=== PATIENT | male | born 2000 | race African-American/Black ===

== ENCOUNTER 2023-08-30 22:10 | Observation (INO) ==
[2023-08-30 22:38] LABS: Basophils # (auto) 0.05 K/uL (0.00-0.20); Basophils % (auto) 0.4 %; Eosinophils # (auto) 0.33 K/uL (0.00-0.50); Eosinophils % (auto) 2.8 %; Hematocrit (blood only) 29.9 % (42.0-52.0); Hemoglobin 10.6 g/dl (14.0-18.0); Immature Granulocytes # (auto) 0.11 K/uL (0.01-0.20); Immature Granulocytes % (auto) 0.9 %; Lymphocytes # (auto) 3.25 K/uL (1.20-3.40); Lymphocytes % (auto) 27.3 %; Mean Corpuscular Hemoglobin 27.1 pg (25.0-34.0); Mean Corpuscular Hgb Conc 35.5 g/dL (32.0-36.0); Mean Corpuscular Volume 76.5 fL (80.0-100.0); Mean Platelet Volume 10.1 fL (9.4-12.4); Monocytes # (auto) 1.21 K/uL (0.11-0.59); Monocytes % (auto) 10.2 %; Neutrophils # (auto) 6.97 K/uL (1.40-6.50); Neutrophils % (auto) 58.4 %; Platelet Count 245 K/uL (130-400); RDW Coefficient of Variation 15.1 % (11.5-14.5); RDW Standard Deviation 39.8 fL (36.4-46.3); Red Blood Count 3.91 M/uL (4.70-6.10); White Blood Count 11.92 K/ul (4.8-10.8)
[2023-08-30 22:47] LABS: Appearance Urine Clear (Clear); Bilirubin Urine Negative (Negative); Blood Urine Negative (Negative); Color Urine Yellow; Glucose Urine UA Negative (Negative); Ketones Urine Negative (Negative); Leukocyte Esterase Urine Negative (Negative); Nitrite Urine Negative (Negative); Protein Urine 1+ (Negative); Urobilinogen Urine Positive (Negative)
[2023-08-30 22:53] LABS: Albumin Globulin Ratio 1.4 (0.9-2); Albumin Level 3.8 gm/dl (3.4-5.0); BUN Creatinine Ratio 11.1 (10-20); Bilirubin,Total 2.9 mg/dl (0.2-1.0); Creatinine Clr Calc Pharmacy 160.6 ml/min; Est GFR (Non-African American) 122.5 ml/min; Globulin 2.7 gm/dl (2.5-4.0); Potassium 3.5 mmol/L (3.5-5.1); Total Protein 6.5 gm/dl (6.0-8.3)
[2023-08-30 22:55] LABS: Amorphous Sediment Urine Present (None Prsent); Epithelial Cell Urine 0-5 /lpf (0-5)
[2023-08-30 22:56] LABS: Bacteria Urine Negative (Negative); RBC Urine 0-4 /hpf (0-4); WBC Urine 0-5 /hpf (0-5)
[2023-08-31] MEDS ORDERED: OPTIRAY 320 500ml IV ONE (00:31)
[2023-08-31] MEDS: SODIUM CHLORIDE 0.9% 1,000 ML IV SCH ×5 (00:36→13:11)
--- NOTE | 2023-08-31 00:36 | Emergency Department Note ---
Impression & Plan Rhabdomyolysis, Anemia, Abdominal pain ED Provider Note CHIEF COMPLAINT: Abdominal pain, copper colored urine HISTORY OF PRESENT ILLNESS: This 22-year-old man patient presents to the emergency department via private vehicle for evaluation of abdominal pain and copper colored urine for the past 4 to 5 days. The patient states that about 6 or 7 days ago, he was doing the "boxers method" to tone his abs. He states that he and friends did wraps of dropping a medicine ball onto the abdomen for approximately 45 minutes. He states within 1 to 2 days, he developed some upper abdominal pain, tenderness, distention, and firmness. He states that around the same time, he noticed that his urine was a copper color. He states he has tried to increase his fluid intake and has not noticed any significant change in the color of the urine. The patient states that the pain feels more like a soreness in the upper abdomen. He denies any other trauma or injury. He denies any recent fever or illness. No diarrhea or constipation. No change in the color of the stool. No chest pain or shortness of breath. No other associated symptoms. No history of similar symptoms. REVIEW OF SYSTEMS: A 10 system review of systems was performed with positives and pertinent negatives listed in the history of present illness. All other systems were reviewed and are negative. ALLERGIES: NKDA PHYSICAL EXAM: VITALS: Vitals are noted on the nurse's note and reviewed by myself. Vital signs stable. GENERAL: This is a 22-year-old male, in no acute distress, nondiaphoretic, well- developed well-nourished. SKIN: The skin was without rashes, erythema, edema, or bruising. There is no tenting of the skin. Capillary refill less than 2 seconds. HEAD: Normocephalic atraumatic. EYES: Conjunctivae without injection, sclerae without icterus. MOUTH: Mucous membranes moist. Tonsils are not enlarged. Pharynx without erythema or exudate. Uvula midline. Airway patent. Tongue does not deviate. NECK: Supple without nuchal rigidity. No lymphadenopathy. Cervical spine is nontender. No JVD. HEART: Regular rate and rhythm without murmurs gallops or rubs. LUNGS: Clear to auscultation bilaterally without wheezes, rales or rhonchi. No retractions or accessory muscle use. ABDOMEN: Positive bowel sounds x 4. Firm, tender area of the epigastrium. No skin discoloration. No fluctuance. Parker sign negative. No guarding or rebound tenderness. MUSCULOSKELETAL: No muscle atrophy, erythema, or edema noted. Full range of motion without joint tenderness in all extremities. No tenderness to palpation. Normal gait. Strength 5/5 throughout. NEURO: Patient was alert and oriented to person place and time. No focal neurological deficits. Imaging as interpreted by myself and the radiologist revealed no acute findings, with radiologist interpretation as above. I agree with the radiologist's findings as based upon my independent interpretation. EMERGENCY DEPARTMENT COURSE: The patient was seen and evaluated as above. Patient presents for upper abdominal pain and urine discoloration after an episode of repeated trauma to the abdomen where a medicine ball was dropped onto his abdomen over several sets for about 45 minutes IV access was obtained, labs were drawn. There is a mild leukocytosis of 11.92. Anemia with a hemoglobin of 10.6. No thrombocytopenia. Renal function without significant abnormality. Bilirubin elevated 2.9. AST and ALT mildly elevated at 70 and 54. Total CK 1121 lipase 16 urinalysis positive for urobilinogen and 1+ protein. No evidence of bacteria or clear evidence of infection Patient was hydrated with 2 L of IV fluids. Patient was reassessed. He is feeling somewhat better at this time. I am concerned for rhabdomyolysis. The patient will be admitted to the hospitalist service. He will have IV hydration. Please see hospitalist dictation regarding ongoing management and care of this patient I did discuss the case with Dr. Rivera, [facility] hospitalist physician Case was discussed with the attending physician. This visit is during a period of high volume and high acuity in the emergency department. I attest that I have personally reviewed the patient medication list. I attest that I have reviewed the patient's blood pressure and it was found to be normotensive In the evaluation and treatment of this patient the following differential diagnoses were entertained: appendicitis, diverticulitis, obstruction, inflammatory bowel disease, renal colic, PUD, biliary pathology, pancreatitis, mesenteric ischemia, aortic pathology, infections, genitourinary, UTI, perforated viscus, rhabdomyolysis, intraabdominal trauma as well as others were entertained. The chart was completed utilizing [employer] voice recognition software. Grammatical errors, random word insertions, pronoun errors, and incomplete sentences are an occasional consequence of this system due to software limitations, ambient noise, and hardware issues. Any formal questions or concerns about the content, text, or information contained within the body of this dictation should be directly addressed to the provider for clarification. Past Med/Surg History Medical History No pertinent past medical history Social History Smoking Status: Never smoker Hx Alcohol Use: No Hx Substance Use: No Preferred Language: Pakistani Communication Ability: Effective Bakery Demonstrator Required: No Beliefs That Will Affect Care: Cultural Cultural Beliefs: Pt cannot eat anything that has pork in it Current Living Situation: Other Current Living Situation Comment: Lives at [facility] Other Information That Helps Us Care for You: No Feels Safe at Home: Yes Safety Concerns: Feels Safe At This Time Assistive Devices: None Allergies Allergies Allergy/AdvReac Type Severity Reaction Status Date / Time pork derived (porcine) AdvReac pt is Verified 08/31/23 02:14 hinduism Pork/Porcine Containing AdvReac pt is Verified 08/31/23 02:14 Products hinduism Home Meds Home Medications Medication Instructions Recorded Confirmed doxycycline hyclate 100 mg tablet 100 mg PO DAILY 08/31/23 08/31/23 Results & Data (ED) Vital Signs Vital Signs - 24 hr 08/30/23 22:15 08/31/23 00:37 08/31/23 00:50 Temperature 37 C Temperature Source Oral Pulse Rate 92 H 100 H 94 H Respiratory Rate 18 18 Respiratory Effort / Characteristics Non-Labored Respiratory Depth Normal Blood Pressure 137/83 Blood Pressure Mean 101 Pulse Oximetry 97 97 Oxygen Delivery Method Room Air Sepsis Recent Fever Within 48 Hours No Sepsis New/Unexplained Change in Mental Status No Sepsis Action Taken by Nursing No Action Required 08/31/23 01:00 08/31/23 01:30 08/31/23 02:20 Temperature Temperature Source Pulse Rate 100 H 97 H 109 H Respiratory Rate 19 23 16 Respiratory Effort / Characteristics Respiratory Depth Blood Pressure 133/82 130/89 138/105 H Blood Pressure Mean 99 102 116 Pulse Oximetry 97 99 Oxygen Delivery Method Sepsis Recent Fever Within 48 Hours Sepsis New/Unexplained Change in Mental Status Sepsis Action Taken by Nursing 08/31/23 02:30 Temperature Temperature Source Pulse Rate 102 H Respiratory Rate 18 Respiratory Effort / Characteristics Respiratory Depth Blood Pressure 137/90 Blood Pressure Mean 105 Pulse Oximetry 98 Oxygen Delivery Method Sepsis Recent Fever Within 48 Hours Sepsis New/Unexplained Change in Mental Status Sepsis Action Taken by Nursing Laboratory Data 08/30/23 22:20 08/30/23 22:20 Lab Results 08/30/23 Range/Units 22:20 WBC 11.92 H (4.8-10.8) K/ul RBC 3.91 L (4.70-6.10) M/uL Hgb 10.6 L (14.0-18.0) g/dl Hct 29.9 L (42.0-52.0) % MCV 76.5 L (80.0-100.0) fL MCH 27.1 (25.0-34.0) pg MCHC 35.5 (32.0-36.0) g/dL RDW Std Deviation 39.8 (36.4-46.3) fL RDW Coeff of Derick 15.1 H (11.5-14.5) % Plt Count 245 (130-400) K/uL MPV 10.1 (9.4-12.4) fL Immature Gran % (Auto) 0.9 % Neut % (Auto) 58.4 % Lymph % (Auto) 27.3 % Ford % (Auto) 10.2 % Eos % (Auto) 2.8 % Baso % (Auto) 0.4 % Neut # (Auto) 6.97 H (1.40-6.50) K/uL Lymph # (Auto) 3.25 (1.20-3.40) K/uL Ford # (Auto) 1.21 H (0.11-0.59) K/uL Eos # (Auto) 0.33 (0.00-0.50) K/uL Baso # (Auto) 0.05 (0.00-0.20) K/uL Immature Gran # (Auto) 0.11 (0.01-0.20) K/uL Sodium 137 (136-145) mmol/L Potassium 3.5 (3.5-5.1) mmol/L Chloride 103 (98-107) mmol/L Carbon Dioxide 29 (21-32) mmol/L Anion Gap 5 (3-11) BUN 10 (6-23) mg/dl Creatinine 0.90 (0.6-1.4) mg/dl Est Cr Clr Drug Dosing 160.6 ml/min Est GFR ( Amer) 142.0 ml/min Est GFR (Non-Af Amer) 122.5 ml/min BUN/Creatinine Ratio 11.1 (10-20) Glucose 96 (70-99(Fasting)) mg/dl Calcium 9.0 (8.6-10.3) mg/dl Total Bilirubin 2.9 H (0.2-1.0) mg/dl AST 70 H (13-39) U/L ALT 54 H (7-52) U/L Alkaline Phosphatase 49 (34-104) U/L Total Creatine Kinase 1121 H (30-223) U/L Total Protein 6.5 (6.0-8.3) gm/dl Albumin 3.8 (3.4-5.0) gm/dl Globulin 2.7 (2.5-4.0) gm/dl Albumin/Globulin Ratio 1.4 (0.9-2) Lipase 16 (11-82) U/L Urine Color Yellow Urine Appearance Clear (Clear) Urine pH 7.0 (4.5-7.5) Ur Specific [place] 1.020 (1.000-1.030) Urine Protein 1+ H (Negative) Urine Glucose (UA) Negative (Negative) Urine Ketones Negative (Negative) Urine Blood Negative (Negative) Urine Nitrite Negative (Negative) Urine Bilirubin Negative (Negative) Urine Urobilinogen Positive H (Negative) Ur Leukocyte Esterase Negative (Negative) Urine RBC 0-4 (0-4) /hpf Urine WBC 0-5 (0-5) /hpf Ur Epithelial Cells 0-5 (0-5) /lpf Amorphous Sediment Present A (None Prsent) Urine Bacteria Negative (Negative) Administered Medications Sodium Chloride (Nss) 1,000 mls @ 250 mls/hr IV .Q4H [facility] Stop: 09/30/23 04:38 Last Admin: 08/31/23 05:02 Dose: 250 mls/hr Documented By: RIVERC Discontinued Medications Sodium Chloride (Nss) 1,000 mls @ 999 mls/hr IV .Q1H1M [facility] Stop: 08/31/23 01:45 Last Infusion: 08/31/23 04:01 Dose: Infused Documented By: Admin: 08/31/23 03:05 Dose: 999 mls/hr Documented By: Infusion: 08/31/23 01:37 Dose: Infused Documented By: Admin: 08/31/23 00:36 Dose: 999 mls/hr Documented By: REJI Sodium Chloride (Nss) 1,000 mls @ 999 mls/hr IV .Q1H1M [facility] Stop: 08/31/23 03:20 Last Infusion: 08/31/23 05:02 Dose: Infused Documented By: Admin: 08/31/23 03:36 Dose: 999 mls/hr Documented By: REJI Ioversol (Optiray 320 500ml) 100 ml IV ONCE ONE Stop: 08/31/23 00:32 Last Admin: 08/31/23 00:31 Dose: 93 ml Documented By: RASHEED Potassium Chloride (Potassium Chloride Crtab 20 Meq Tabcr) 40 meq PO NOW STA Stop: 08/31/23 02:36 Last Admin: 08/31/23 03:30 Dose: 40 meq Documented By: REJI Imaging Data Radiologist's Impression: Abdomen/Pelvis CT 08/30/23 23:52 Exam(s): CT ABDOMEN + PELVIS With Contrast IV Amt: 93 ML OPTIRAY 320 EXAM: CT Abdomen and Pelvis With Intravenous Contrast CLINICAL HISTORY: Reason for exam: epigastric RUQ pain, copper colored urine,. TECHNIQUE: Axial computed tomography images of the abdomen and pelvis with intravenous contrast. CTDI is 27.13 mGy and DLP is 1331.31 mGy-cm. Automated exposure control was utilized for the study. A dose lowering technique was utilized adhering to the principles of ALARA. CONTRAST: Patient received 93 ML OPTIRAY 320 of IV contrast COMPARISON: No relevant prior studies available. FINDINGS: Lung bases: Unremarkable. No mass. No consolidation. ABDOMEN: Liver: Unremarkable. No mass. Gallbladder and bile ducts: Unremarkable. No calcified stones. No ductal dilation. Pancreas: Unremarkable. No mass. No ductal dilation. Spleen: Unremarkable. No splenomegaly. Adrenals: Unremarkable. No mass. Kidneys and ureters: Unremarkable. No solid mass. No hydronephrosis. Stomach and bowel: Unremarkable. No obstruction. No mucosal thickening. PELVIS: Appendix: No findings to suggest acute appendicitis. Bladder: Unremarkable. No mass. Reproductive: Unremarkable as visualized. ABDOMEN and PELVIS: Intraperitoneal space: Unremarkable. No free air. No significant fluid collection. Bones/joints: No acute fracture. No dislocation. Soft tissues: Unremarkable. Vasculature: Unremarkable. No abdominal aortic aneurysm. Lymph nodes: Unremarkable. No enlarged lymph nodes. IMPRESSION: No acute abdominal or pelvic process. Electronically signed by: Edis Mckeon M.D. 08/31/23 01:21 AM Discharge Plan Visit Data Chief Complaint: Abdominal Pain Stated Complaint: ABDOMINAL PAIN, DARK ORANGE URINE/DRINKING WATER ED Provider: Sascha Franklin ED Midlevel Provider: Melly Licona Discharge Problem: Rhabdomyolysis, Anemia, Abdominal pain Patient Disposition: Admitted As Inpatient Discharge Instructions Interventions: ED Discharge Assessment Last Done: 08/31/23 03:45
--- NOTE | 2023-08-31 01:22 | CT Scan Report ---
Exam(s): CT ABDOMEN + PELVIS With Contrast IV Amt: 93 ML OPTIRAY 320 EXAM: CT Abdomen and Pelvis With Intravenous Contrast CLINICAL HISTORY: Reason for exam: epigastric RUQ pain, copper colored urine,. TECHNIQUE: Axial computed tomography images of the abdomen and pelvis with intravenous contrast. CTDI is 27.13 mGy and DLP is 1331.31 mGy-cm. Automated exposure control was utilized for the study. A dose lowering technique was utilized adhering to the principles of ALARA. CONTRAST: Patient received 93 ML OPTIRAY 320 of IV contrast COMPARISON: No relevant prior studies available. FINDINGS: Lung bases: Unremarkable. No mass. No consolidation. ABDOMEN: Liver: Unremarkable. No mass. Gallbladder and bile ducts: Unremarkable. No calcified stones. No ductal dilation. Pancreas: Unremarkable. No mass. No ductal dilation. Spleen: Unremarkable. No splenomegaly. Adrenals: Unremarkable. No mass. Kidneys and ureters: Unremarkable. No solid mass. No hydronephrosis. Stomach and bowel: Unremarkable. No obstruction. No mucosal thickening. PELVIS: Appendix: No findings to suggest acute appendicitis. Bladder: Unremarkable. No mass. Reproductive: Unremarkable as visualized. ABDOMEN and PELVIS: Intraperitoneal space: Unremarkable. No free air. No significant fluid collection. Bones/joints: No acute fracture. No dislocation. Soft tissues: Unremarkable. Vasculature: Unremarkable. No abdominal aortic aneurysm. Lymph nodes: Unremarkable. No enlarged lymph nodes. IMPRESSION: No acute abdominal or pelvic process. Electronically signed by: Edis Mckeon M.D. 08/31/23 01:21 AM
[2023-08-31] MEDS ORDERED: SODIUM CHLORIDE 0.9% 1,000 ML IV SCH (02:20)
--- NOTE | 2023-08-31 02:21 | History & Physical Report ---
Date of Service August 31, 2023 Assessment & Plan (1) Rhabdomyolysis: Plan: Pt is a 22 yo male with no significant PMH presenting to the ER d/t abdominal pain. Rhabdomyolysis - CK 1121 upon admission in the setting of intense physical activity - lab work also significant for Cr 0.90; transaminitis noted with AST/ALT 70/54 - UA showed 1+ protein, neg for urine RBCs - continue NS 2L boluses from ER; ordered 1L additional NS bolus in addition to starting maintenance IVF with NS at 250 mL/hr - s/p 40 meq K PO - BMP/CK ordered for AM Anemia - 10.6 upon admission; no prior labs - currently asymptomatic from anemia stand point; no active bleeding - pt does endorse increasing his fluid intake at home so this may be dilutional - recommend outpatient f/u to address if chronic - CBC ordered for AM Acne - continue home doxy 100 mg daily Diet: regular (no pork or pork derived products) VTE ppx: deferred, low risk Code: full Dispo: med/surg (2) Acne: (3) Anemia: History of Present Illness Chief Complaint: abdominal pain Primary Care Provider: [facility] Pt is a 22 yo male with no significant PMH presenting to the ER d/t abdominal pain. Pt states his abdominal pain started around 6-7 days ago after a new and particularly intense abdominal work out. About 4-5 days ago, he noticed that his urine was a dark orange/brown color. His abdominal pain continued throughout this change in urine color. He tried to increase his fluid intake at home but this did not change the color of his urine. He denies any other muscular pain. He denies any significant PMH. He is on chronic PO doxy for acne. No other medications. In the ER, pt was hemodynamically stable but slightly tachycardic. He was ordered 2L of NS. Allergies Allergy/AdvReac Type Severity Reaction Status Date / Time pork derived (porcine) AdvReac pt is Verified 08/31/23 02:14 taoist Pork/Porcine Containing AdvReac pt is Verified 08/31/23 02:14 Products taoist Home Medications Medication Instructions Recorded Confirmed Type acetaminophen 325 mg/10.15 mL oral 650 mg (20.3 mL) PO Q4H PRN Pain 08/31/23 Rx suspension 30 days #30 mL doxycycline hyclate 100 mg tablet 100 mg PO DAILY 08/31/23 08/31/23 History Past Med/Surg History Medical History No pertinent past medical history Social History Smoking Status: Never smoker Hx Alcohol Use: No Hx Substance Use: No Preferred Language: Botswanan Communication Ability: Effective Robotics Mechanic Required: No Beliefs That Will Affect Care: Cultural Cultural Beliefs: Pt cannot eat anything that has pork in it Current Living Situation: Other Current Living Situation Comment: Lives at [facility] Other Information That Helps Us Care for You: No Feels Safe at Home: Yes Safety Concerns: Feels Safe At This Time Assistive Devices: None Review of Systems Review of Systems: As per HPI Physical Exam Physical Exam: Constitutional: well appearing, no acute distress HEENT: normocephalic, no conjunctival injection CV: RRR, no murmur, no LE edema Respiratory: CTA bilaterally. No rhonchi, wheezes, or crackles. No increased work of breathing GI: soft, nondistended, minimally tender upon palpation of all 4 quadrants, + bowel sounds MSK: no gross deformities noted Skin: warm, dry, no rashes Neuro: alert, oriented, no FND noted Psych: mood and affect congruent Results & Data Results & Data Vital Signs (Past 12 Hours) Vital Signs Temp Pulse Resp BP Pulse Ox O2 Del Method 08/31/23 00:50 94 H 18 97 08/31/23 00:37 100 H 08/30/23 22:15 37 C 92 H 18 137/83 97 Room Air Supervising Physician Co-Signing Physician Notes Attending addendum: I have physically seen this patient, have supervised the medical residents activities, and agree with the H&P unless as otherwise noted. Assessment and Plan: Rhabdomyolysis- [id number], AST 70, ALT 54 Status post 2 l normal saline in the ED Give additional 1 L normal saline bolus, then NSS + KCl 20 mEq at 250 MLS per hour for 1 additional liter Follow serial renal function panel, CK and magnesium levels Advised patient to avoid type of physical activity, boxers challenge, as brought him in here Anemia- Hemoglobin 10.6 and hematocrit 29.9 on admission Repeat in a.m., if persistent and or decreasing, workup can be performed as an outpatient, as patient is not symptomatic Resident Activity Tracking Resident Involvement: Resident Care Provided Care Provided: Adult [facility] Medicine
[2023-08-31] MEDS ORDERED: POTASSIUM CHLORIDE CRTAB 20 MEQ TABCR PO STA (02:35)
[2023-08-31] MEDS ORDERED: MELATONIN 3 MG TAB PO PRN (02:56)
[2023-08-31] MEDS ORDERED: ONDANSETRON INJ 2 MG/ML 2 ML VIAL IV PRN (02:56)
[2023-08-31] MEDS ORDERED: ACETAMINOPHEN SUSP 325 MG/10.15 ML UDC PO PRN (03:07)
[2023-08-31 07:12] LABS: Hematocrit (blood only) 29.1 % (42.0-52.0); Hemoglobin 10.3 g/dl (14.0-18.0); Mean Corpuscular Hemoglobin 26.9 pg (25.0-34.0); Mean Corpuscular Hgb Conc 35.4 g/dL (32.0-36.0); Mean Platelet Volume 10.1 fL (9.4-12.4); Platelet Count 224 K/uL (130-400); RDW Coefficient of Variation 15.1 % (11.5-14.5); RDW Standard Deviation 39.9 fL (36.4-46.3); Red Blood Count 3.83 M/uL (4.70-6.10); White Blood Count 9.61 K/ul (4.8-10.8)
[2023-08-31 07:35] LABS: Anion Gap 3 (3-11); BUN Creatinine Ratio 11.8 (10-20); Blood Urea Nitrogen 8 mg/dl (6-23); Calcium 8.1 mg/dl (8.6-10.3); Carbon Dioxide 28 mmol/L (21-32); Chloride 109 mmol/L (98-107); Creatine Kinase 647 U/L (30-223); Creatinine Clr Calc Pharmacy 213.3 ml/min; Est GFR (African American) > 150.0 ml/min; Est GFR (Non-African American) 137.5 ml/min; Glucose 94 mg/dl (70-99(Fasting)); Potassium 3.7 mmol/L (3.5-5.1); Sodium 140 mmol/L (136-145)
[2023-08-31] MEDS ORDERED: DOXYCYCLINE SUSP 25 MG/5 ML 60ML PO SCH (09:00)
[2023-08-31] MEDS ORDERED: DOXYCYCLINE HYCLATE 100 MG CAP PO SCH (09:15)
--- NOTE | 2023-08-31 15:18 | Discharge Summary ---
Discharge Summary Date of Service August 31, 2023 Notes For Next Care Provider CK decreased to 600 today, urine is now pale yellow Encouraged aggressive PO hydration with followup on Sunday or Sunday at [facility] Follow up on anemia Medication Changes From Visit None Admission HPI Per Admitting Provider Pt is a 22 yo male with no significant PMH presenting to the ER d/t abdominal pain. Pt states his abdominal pain started around 6-7 days ago after a new and particularly intense abdominal work out. About 4-5 days ago, he noticed that his urine was a dark orange/brown color. His abdominal pain continued throughout this change in urine color. He tried to increase his fluid intake at home but this did not change the color of his urine. He denies any other muscular pain. He denies any significant PMH. He is on chronic PO doxy for acne. No other medications. In the ER, pt was hemodynamically stable but slightly tachycardic. He was ordered 2L of NS. Principal Dx & Hospital Course #1 = Principal Diagnosis (1) Rhabdomyolysis: - CK 1121 upon admission in the setting of intense physical activity, downtrended to 647 - UA showed 1+ protein, neg for urine RBCs - Received 5+L NSS while inpatient, encouraged aggressive PO hydration at discharge - Urine now pale yellow (2) Anemia: 10.6 upon admission; no prior labs - currently asymptomatic from anemia stand point; no active bleeding - recommend outpatient f/u to address if chronic (3) Acne: - continue home doxy 100 mg daily Plan Discharge to home. Discharge Exam General: NAD, VS as above Resp: normal respiratory effort, lungs clear to auscultation CV: RRR, no murmur, Abd: normal bowel sounds, non tender, no hepatosplenomegaly Extremities: Moves all extremities, no edema Neuro: A&O x3, Skin: intact, no lesions noted Updated Medication List Medication Instructions Recorded Confirmed Type doxycycline hyclate 100 mg tablet 100 mg PO DAILY 08/31/23 08/31/23 History Hospital Stay Data Consultations 08/31/23 02:42 ED Decision to Admit Stat Diagnostic Imagining Performed 08/30/23 23:52 CT abd pelvis IV con only Stat Pending Results Patient Have Any Pending Studies at Discharge: No Discharge Instructions Given to Patient (Per Discharging Provider) Mr. Shea Iraj were diagnosed with rhabdomyolysis after a new workout regiment. As we discussed this is caused by muscle breakdown and the treatment is hydration to basically pee out the broken down muscle. You were treated with aggressive IV fluids while you were here. At discharge recommend at least 80 ounces of water or electrolyte drinks daily until your follow up appointment. Your urine should be light yellow or clear in color. If you notice any darkening to your urine, ie tea colored please return to the ER. Would not recommend lifting until after your follow up appointment. It is very important that you stay hydrated. Please read the attached handout regarding rhabdomyolysis. It was our pleasure taking care of you, Katia Mccarthy PA-C Total Time Total Time Spent Total Time Spent (In Minutes): Time spend day of discharge 35 minutes including direct patient care, medication reconciliation, documentation, review of labs and images, and coordination of care. Coding Level of Care Code INP/OBS EV SAME DAY LV 1,45MIN Diagnoses Rhabdomyolysis M62.82 Anemia D64.9 Acne L70.9
--- NOTE | 2023-09-02 05:28 | Billing Data ---
Date of Service September 02, 2023 Coding Level of Care Code 53150 INT INP/OBS CARE
== END 2023-08-31 16:45 | disposition home or self-care (01) | DRG 558 ==
LOC: ED 22:10 → SUATTDRO 08-31 02:57 → INTOOBSV 08-31 02:57 → 3E 08-31 02:57